=== PATIENT | male | born 1965 | race Two or more races ===

== ENCOUNTER 2024-11-25 03:06 | Emergency (ER) | payer OTHER ==
[~2024-11-25] VITALS: Ht 162.6 cm; Wt 63.5 kg
[~2024-11-25 03:06] MED LIST: TYLENOL ALLERGY1 T13; VISTARIL25 MG PO
[2024-11-25] MEDS ORDERED: LISINOPRIL2.5 MG (03:21)
[2024-11-25] MEDS ORDERED: CLONIDINE HCL 0.1 MG TABLET PO STA (04:21)
[2024-11-25] MEDS ORDERED: CLONIDINE HCL 0.1 MG TABLET PO ONE (04:24)
[2024-11-25 04:36] LABS: HEMATOCRIT 42.7 % (39.0-48.0); HEMOGLOBIN 14.6 g/dL (13-16.00); MEAN CELL VOLUME 94.2 fL (80.0-100.00); MEAN CORPUSCULAR HEMOGLOBIN 32.3 pg (27.00-32.0); MEAN CORPUSCULAR HGB CONC 34.2 g/dl (32.0-36.0); PLATELET COUNT 197 K/uL (150-450); RED BLOOD COUNT 4.54 M/uL (4.00-6.00); RED CELL DISTRIBUTION WIDTH 12.7 % (11.5-14.5)
[2024-11-25 05:00] LABS: BILIRUBIN TOTAL 1.02 mg/dL (0.3-1.2); CALCIUM 9.2 mg/dL (8.5-10.1); CREATININE SERUM 0.78 mg/dL (0.70-1.30); GLOBULINA 4.4 G/DL (2.4-3.5); POTASSIUM 4.28 mEq/L (3.5-5.1); TOTAL PROTEIN 8.4 gm/dL (6.4-8.2)
[2024-11-25 05:38] LABS: GFR 102.23
== END 2024-11-25 06:20 | disposition home or self-care (01) ==
LOC: ER 03:09
DX: G44.209 Tension-type headache, unspecified, not intractable (principal); I10 Essential (primary) hypertension

== ENCOUNTER 2025-06-19 09:17 | Emergency (ER) | payer OTHER ==
[~2025-06-19] VITALS: Ht 162.6 cm; Wt 71.7 kg
[~2025-06-19 09:17] MED LIST changes: +LISINOPRIL2.5 MG
[2025-06-19] MEDS ORDERED: NORVASC5 MG PO (09:56)
[2025-06-19 09:57] VITALS: BP 127/85; O2SAT 96
[2025-06-19] MEDS ORDERED: HYDROCHLOROTH12.5 M2 PO (09:57)
[2025-06-19] MEDS ORDERED: FAMOtidine 10 MG/ML (4ML VIAL) IV ONE (11:15)
[2025-06-19] MEDS ORDERED: DEXAMETHASONE SODIUM PHOSP/PF 10 MG/ML VIAL IV ONE (11:15)
[2025-06-19] MEDS ORDERED: DIPHENHYDRAMINE HCL 50 MG/ML VIAL 1ML IV ONE (11:15)
[2025-06-19] MEDS ORDERED: DIPHENHYDRAMINE HCL 50 MG/ML VIAL 1ML ONE (11:39)
[2025-06-19] MEDS ORDERED: DEXAMETHASONE SODIUM PHOSPHATE 4 MG/ML VIAL ONE (11:40)
[2025-06-19] MEDS ORDERED: FAMOTIDINE/PF 20 MG/2 ML VIAL ONE (11:40)
[2025-06-19] MEDS ORDERED: ZYRTEC10 M3 PO (13:32)
== END 2025-06-19 13:53 | disposition home or self-care (01) ==
LOC: ER 09:17
DX: R60.0 Localized edema (principal); I10 Essential (primary) hypertension